=== PATIENT | female | born 1955 | race Caucasian/White ===

== ENCOUNTER 2021-10-19 19:28 | Inpatient (IN) | payer MEDICARE, OTHER ==
[~2021-10-19] VITALS: Ht 154.9 cm; Wt 70.2 kg
[2021-10-19 21:30] LABS: Bun/Creatinine Ratio 37.5 (12.0-20.0); Calcium, Blood 8.8 mg/dL (8.5-10.1); Creatinine, Blood 0.48 mg/dL (0.40-1.00); Magnesium, Blood 2.2 mg/dL (1.6-2.4); Potassium, Blood 3.4 mmol/L (3.5-5.5)
--- NOTE | 2021-10-20 06:25 | NUR ---
SHIFT SUMMARY A/O X4. SINCE ARRIVAL PATIENT HAS REMAINED ON 7L HIGH FLOW 02 W/ NC. NG TUBE IN PLACE TO LIS DRAINING GREENISH BROWN FLUID, 600ML OUT THIS SHIFT. LIU DRAINING TO GRAVITY. PT REPORTS NO PAIN THROUGHOUT SHIFT. VITAL SIGNS STABLE. TELE IN PLACE. WILL CONTINUE TO MONITOR AND REPORT TO ONCOMING RN.
[2021-10-20 07:37] LABS: Hematocrit 39.8 % (33.0-51.0); Hemoglobin 13.2 g/dL (11.5-16.0); Mean Corpuscular HGB 29.2 pg (26.0-34.0); Mean Corpuscular HGB Conc 33.2 g/dL (31.5-36.5); Mean Corpuscular Volume 88 fL (80-100); Mean Platelet Volume 10.7 fL (9.1-12.4); Platelet Count 167 K/mm3 (150-400); RDW Coefficient Variation 15.6 % (11.7-14.2); RDW Standard Deviation 50.6 fL (35.1-46.3); Red Blood Cell Count 4.52 M/mm3 (3.80-5.20); White Blood Cell Count 8.42 K/mm3 (4.00-11.30)
[2021-10-20 07:51] LABS: Bun/Creatinine Ratio 36.4 (12.0-20.0); Calcium, Blood 8.2 mg/dL (8.5-10.1); Creatinine, Blood 0.5 mg/dL (0.40-1.00); Potassium, Blood 3.1 mmol/L (3.5-5.5)
--- NOTE | 2021-10-20 12:29 | NUR ---
NG TUBE DCed PT'S NG TUBE WAS DCED. NO DISCOMFORT ON DC AND TUBE WAS FOUND TO BE INTACT. NO GAGGING OR VOMITING UPON REMOVAL.
--- NOTE | 2021-10-20 17:23 | NUR ---
SHIFT SUMMARY PT TO HAVE SMALL BOWEL FOLLOW-THROUGH IN IMAGING TODAY. PT INITIALLY PASSING FLATUS AND WAS THEN ABLE TO HAVE A BM W/ 2200ML LIQUID WELL A FORMED, DENSE STOOL. SINCE, PT HAS HAD MULTIPLE LIQUID STOOLS. PT TOOK A SHOWER TODAY AND HAS BEEN ADVANCED TO SIPS OF CLEAR LIQUIDS W/ PERMISSION FOR POPSICLES AND HAS TOLERATED THE DIET WELL. AT APPROX 1715, PT EXPERIENCED A RUN OF VTACH FOR 8 BEATS. FOR FURTHER, SEE TELEMETRY REPORT. PT IS RESTING IN HER ROOM AT TIME TIME. WILL CONTINUE TO MONITOR AND UPDATE NECESSARY.
--- NOTE | 2021-10-20 23:50 | NUR ---
SHIFT ASSESSMENT DONE W/NURSING STUDENBT; AGREE W/DOCUMENTED ASSESSMENT.
[2021-10-21 07:47] LABS: BASOPHILS ABSOLUTE AUTO 0.07 K/mm3 (0.00-0.23); BASOPHILS PERCENT AUTO 1 % (0-2); EOSINOPHILS ABSOLUTE AUTO 0.43 K/mm3 (0.00-0.68); EOSINOPHILS PERCENT AUTO 3 % (0-6); Hematocrit 39.7 % (33.0-51.0); IMMATURE GRAN ABSOLUTE AUTO 0.13 K/mm3 (0.00-0.10); IMMATURE GRAN PERCENT AUTO 1 % (0-1); LYMPHOCYTES ABSOLUTE AUTO 2.36 K/mm3 (0.84-5.20); LYMPHOCYTES PERCENT AUTO 19 % (21-46); MONOCYTES ABSOLUTE AUTO 0.92 K/mm3 (0.16-1.47); MONOCYTES PERCENT AUTO 7 % (4-13); Mean Corpuscular HGB 29.5 pg (26.0-34.0); Mean Corpuscular HGB Conc 32.7 g/dL (31.5-36.5); Mean Corpuscular Volume 90 fL (80-100); NEUTROPHILS ABSOLUTE AUTO 8.62 K/mm3 (1.96-9.15); NEUTROPHILS PERCENT AUTO 69 % (41-73); Platelet Count 266 K/mm3 (150-400); RDW Coefficient Variation 15.6 % (11.7-14.2); RDW Standard Deviation 51.8 fL (35.1-46.3); Red Blood Cell Count 4.41 M/mm3 (3.80-5.20); White Blood Cell Count 12.53 K/mm3 (4.00-11.30)
--- NOTE | 2021-10-21 07:57 | NUR ---
PT HAD MULTIPLE RUST COLORED LIQ STOOLS. PT DENIED PAIN/N/V. ABD SOFT TO PALP, MARCUS CL PO. SATS >90% ON 7L HFNC. PT REMAINS SOB W/EXERTION, LUNGS W/CRACKLES IN BASES. I/S USE REINFORCED. PT UP TO BSC INDEP. LIU DRNG ADELINE URINE.
[2021-10-21 07:59] LABS: Albumin, Blood 2.5 g/dL (3.4-5.0); Albumin/Globulin Ratio 0.7 (0.8-1.8); Bilirubin, Total 0.8 mg/dL (0.1-1.0); Bun/Creatinine Ratio 33.3 (12.0-20.0); Calcium, Blood 8.4 mg/dL (8.5-10.1); Creatinine, Blood 0.45 mg/dL (0.40-1.00); Globulin, Blood 3.5 g/dL (2.2-4.0); Potassium, Blood 3.2 mmol/L (3.5-5.5)
--- NOTE | 2021-10-21 16:42 | NUR ---
SHIFT SUMMARY: SBO NO SIGNIFICANT CHANGES. PATIENT IS A&OX4. PATIENT IS NOW ON 2L NC ON OXYGEN WITH >90% OF OXYGEN. PATIENT DENIES PAIN THROUGHOUT SHIFT. SHE IS INDEP. IN THE ROOM TO BATHROOM. SHE IS VOIDING AND HAVING BMS. SHE IS TOLERATING HER FULL LIQUID TRAY AND WILL BE TRYING HER REGULAR TRAY FOR DINNER. CALLS APPROPRIATELY. CALL LIGHT WITHIN REACH.
--- NOTE | 2021-10-21 21:21 | NUR ---
AT APPROX 2100 WAS ALERTED BY [facility] THAT PT HAD A RUN OF 7 T-TACH. PT IS A&O AND VS ARE STABLE.
[2021-10-22 04:05] LABS: BASOPHILS ABSOLUTE AUTO 0.06 K/mm3 (0.00-0.23); BASOPHILS PERCENT AUTO 1 % (0-2); EOSINOPHILS ABSOLUTE AUTO 0.38 K/mm3 (0.00-0.68); EOSINOPHILS PERCENT AUTO 3 % (0-6); Hematocrit 36.3 % (33.0-51.0); Hemoglobin 12.1 g/dL (11.5-16.0); IMMATURE GRAN ABSOLUTE AUTO 0.14 K/mm3 (0.00-0.10); IMMATURE GRAN PERCENT AUTO 1 % (0-1); LYMPHOCYTES ABSOLUTE AUTO 2.25 K/mm3 (0.84-5.20); LYMPHOCYTES PERCENT AUTO 20 % (21-46); MONOCYTES ABSOLUTE AUTO 1.02 K/mm3 (0.16-1.47); MONOCYTES PERCENT AUTO 9 % (4-13); Mean Corpuscular HGB 29.4 pg (26.0-34.0); Mean Corpuscular HGB Conc 33.3 g/dL (31.5-36.5); Mean Corpuscular Volume 88 fL (80-100); Mean Platelet Volume 10.4 fL (9.1-12.4); NEUTROPHILS ABSOLUTE AUTO 7.53 K/mm3 (1.96-9.15); NEUTROPHILS PERCENT AUTO 66 % (41-73); Platelet Count 211 K/mm3 (150-400); RDW Coefficient Variation 15.4 % (11.7-14.2); RDW Standard Deviation 50.3 fL (35.1-46.3); Red Blood Cell Count 4.11 M/mm3 (3.80-5.20); White Blood Cell Count 11.38 K/mm3 (4.00-11.30)
[2021-10-22 04:22] LABS: Bun/Creatinine Ratio 17.4 (12.0-20.0); Calcium, Blood 8.3 mg/dL (8.5-10.1); Creatinine, Blood 0.46 mg/dL (0.40-1.00); Magnesium, Blood 1.7 mg/dL (1.6-2.4); Phosphorus, Blood 1.7 mg/dL (2.5-4.9); Potassium, Blood 3.5 mmol/L (3.5-5.5)
--- NOTE | 2021-10-22 04:30 | NUR ---
PT IS A&OX4, INDEPENDENT TO BSC, AND IS ABLE TO MAKE NEEDS KNOWN. PT ABLE TO SLEEP 7+ HOURS THIS SHIFT. NO COMPLAINTS OF PAIN. HAVING LOOSE STOOLS. TOLERATING REGULAR DIET. REMAINS ON TELE FOR A-FIB, HAD A RUN OF V-TACH LAST EVENING PT STATED THAT THEY FELT FINE AND VS WERE STABLE. WILL CONTINUE TO MONITOR THIS PT AND GIVE REPORT TO ONCOMING NURSE.
[2021-10-22] MEDS ORDERED: AMOCLA875 PO (16:47)
[2021-10-22] MEDS ORDERED: VISBIOME 112.51 EACH PO (16:47)
--- NOTE | 2021-10-22 17:23 | NUR ---
DISCHARGE PT PROVIDED WITH WRITTEN AND VERBAL DISCHARGE INSTRUCTIONS; SHE REPORTED UNDERSTANDING. PT WAS EDUCATED TO LEAVE DRESSING IN PLACE OVER CENTRAL LINE REMOVAL SITE FOR APPROXIMATELY 48 HOURS AND TO REPLACE WITH A BANDAID IF THE DRESSING COMES OFF BEFORE THAT TIME. PT EDUCATED TO REACH OUT TO PRIMARY CARE OFFICES IN HER AREA AND TRY TO ESTABLISH A PCP AND APPOINTMENT WITHIN 1 WEEK. PT REMAINED ON RA T/O THE DAY, O2 SATURATIONS MAINTAINED IN THE MID TO HIGH 90'S. PT WORKED WITH THERAPY AND NO FOLLOW UP PT WAS RECOMMENDED FOR HOME. PT ESCORTED OUT IN WHEELCHAIR AT APPROXIMATELY 1712.
== END 2021-10-22 17:12 | disposition home or self-care (01) | DRG 871 ==
LOC: SURS 19:28
PROVIDERS: Internal Medicine; ADMIT Internal Medicine
DX: A41.9 Sepsis, unspecified organism (principal); J69.0 Pneumonitis due to inhalation of food and vomit; J96.01 Acute respiratory failure with hypoxia; J18.9 Pneumonia, unspecified organism; K56.609 Unspecified intestinal obstruction, unspecified as to partial versus complete obstruction; R65.20 Severe sepsis without septic shock; E87.6 Hypokalemia; I48.0 Paroxysmal atrial fibrillation; F15.10 Other stimulant abuse, uncomplicated; Z87.891 Personal history of nicotine dependence; Z90.49 Acquired absence of other specified parts of digestive tract
CPT/HCPCS: 36415; 71045; 74250; 80048; 80053; 83735; 84100; 85025; 85027; 94762; 97116; 97162; 97165; 97530; J1650; J2543; J3480; J7030; J7040